=== PATIENT | female | born 1995 | race Caucasian/White ===

== ENCOUNTER 2022-09-02 23:37 | Inpatient (IN) ==
[2022-09-03] MEDS ORDERED: LIDOCAINE 1% LOCAL 20 ML VIAL INFIL PRN (00:17)
[2022-09-03] MEDS ORDERED: OXYTOCIN 30 UNITS/500 ML BAG IV PRN ×2 (00:17→13:10)
--- NOTE | 2022-09-03 00:22 | History & Physical Report ---
Date of Service September 03, 2022 Assessment & Plan (1) Supervision of normal intrauterine in primigravida: Plan: 26 yo at 40 6/7 wga presents in labor VSS Fetus cat 1 Labor - expectant management GBS neg epidural prn History of Present Illness Chief Complaint: ctx Primary Care Provider: NO PCP 26 yo at 40 6/7 wga presents w/ ctx increasing in frequency and intensity, worsened over last 3hrs compared to earlier. 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 SAB G2 current q21d cycles 01/2022 neg cyto denies hx stis Allergies Allergy/AdvReac Type Severity Reaction Status Date / Time clarithromycin Allergy Unknown unknown Verified 09/02/22 23:58 Home Medications Medication Instructions Recorded Confirmed Type prenat.vits,miguel a,nhj-ofho-ekbzg 1 tab PO DAILY 01/07/22 09/02/22 History Patient History Medical History No known health problems Surgical History S/P dilation and curettage S/P wisdom tooth extraction Family History Other Diabetes Heart disease Social History Smoking Status: Never smoker Hx Alcohol Use: No Hx Substance Use: No Preferred Language: Ukrainian Communication Ability: Effective 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 Beliefs That Will Affect Care: None marital status: marital status details: Sp (29) [phone] Current Living Situation: Spouse Current Living Situation Comment: house with current occupational status: employed 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 Other Information That Helps Us Care for You: No Feels Safe at Home: Yes Safety Concerns: Feels Safe At This Time Assistive Devices: Glasses Physical Exam Genitourinary: OB Exam Abdomen: + vertex Manual OB Exam: + cervical dilation (3-4), + cervical effacement 70% and + station -2 OB Exam Monitor Tracing: + external FHT monitor used, + external uterine monitor used (q5) and + category I (135/mod/+accel/-decel) Results & Data ([facility]) Vital Signs (Past 12 Hours) Vital Signs Temp Pulse Resp BP O2 Del Method 09/02/22 23:58 18 Room Air 09/02/22 23:56 97.9 F 106 H 18 122/76 Laboratory Results OB Labs: Blood Type A Positive 01/15/22 Antibody Screen NEGATIVE 01/15/22 Hemoglobin 11.0 g/dl (12.0-16.0) L 06/18/22 Hematocrit 32.7 % (34.1-44.9) L 06/18/22 Mean Corpuscular Volume 84.0 fL (80.0-100.0) 01/15/22 Platelet Count 279 K/uL (130-400) 01/15/22 Rubella IgG Antibody Immune (Immune) 01/15/22 Rapid Plasma Reagin Nonreactive (Nonreactive) 01/15/22 Hepatitis B Surface Antigen. NON-REACTIVE (NON-REACTIVE) 01/15/22 Hepatitis C Antibody (EIA) NON-REACTIVE (NON-REACTIVE) 01/15/22 HIV (1&2) Ag and Ab Confirmation NON-REACTIVE (NON-REACTIVE) 01/15/22 Glucose 1 Hour 50 gm Load 96 mg/dl (70-130) 06/18/22 OB Optional Labs: Chlamydia trachomatis RNA NOT DETECTED (NOT DETECTED) 01/15/22 Neisseria gonorrhoeae RNA NOT DETECTED (NOT DETECTED)B 01/15/22 GBS neg Diagnostic Findings ant plac Coding Level of Care Code None Diagnoses Supervision of normal intrauterine in primigravida Z34.00
[2022-09-03] MEDS: LACTATED RINGER'S 1,000 ML IV PRN ×2 (00:32→02:14)
[2022-09-03 00:58] LABS: Hematocrit (blood only) 31.6 % (37.0-47.0); Hemoglobin 10.4 g/dl (12.0-16.0); Mean Corpuscular Hemoglobin 25.7 pg (25.0-34.0); Mean Corpuscular Hgb Conc 32.9 g/dL (32.0-36.0); Mean Corpuscular Volume 78.2 fL (80.0-100.0); Platelet Count 246 K/uL (130-400); RDW Coefficient of Variation 13.7 % (11.5-14.5); Red Blood Count 4.04 M/uL (4.20-5.40); White Blood Count 11.44 K/ul (4.8-10.8)
[2022-09-03] MEDS ORDERED: SODIUM CHLORIDE 0.9% INJ 10 ML VIAL ONE (01:33)
[2022-09-03] MEDS ORDERED: fentaNYL citrate 100 MCG/2 ML VIAL ONE (01:33)
[2022-09-03] MEDS ORDERED: BUPIVACAINE 0.25% 30 ML VIAL ONE (01:33)
[2022-09-03] MEDS ORDERED: LIDOCAINE 2%/EPINEPHRINE 1:200,000 20 ML SDV ONE (01:33)
[2022-09-03] MEDS ORDERED: ePHEDrine sulfate 50 MG/ML AMP ONE (01:33)
[2022-09-03] MEDS ORDERED: fentaNYL 2MCG/ML ROPIVACAINE 1.25MG/ML 100 ML BAG EPI ONE (01:34)
[2022-09-03] MEDS ORDERED: NALBUPHINE HCL INJ 10 MG/ML AMP IV PRN (01:44)
[2022-09-03] MEDS ORDERED: NALOXONE HCL 1 MG in SODIUM CHLORIDE 0.9% 1000ML 1,000 ML IV PRN (01:44)
[2022-09-03] MEDS ORDERED: NALOXONE HCL 0.4 MG/1 ML VIAL/CARP IV PRN (01:44)
[2022-09-03] MEDS ORDERED: diphenhydrAMINE 50 MG/ML VIAL IV PRN (01:44)
[2022-09-03] MEDS ORDERED: ePHEDrine sulfate 50 MG/ML AMP IV PRN (01:44)
[2022-09-03] MEDS ORDERED: fentaNYL 2MCG/ML ROPIVACAINE 1.25MG/ML 100 ML BAG EPI PRN (01:44)
--- NOTE | 2022-09-03 01:44 | Anesthesiology Consultation ---
Date of Service September 03, 2022 Assessment & Plan (1) Encounter for pre-operative examination: Chart Review Chart Review: Patient NOT seen in Pre Admission Testing and Acceptable Risk for Labor Epidural Consults Requested none History Height/Weight Height: 5 ft 7 in Weight: 92.533 kg Allergies Allergy/AdvReac Type Severity Reaction Status Date / Time clarithromycin Allergy Unknown unknown Verified 09/02/22 23:58 Medications Home Medications Medication Instructions Recorded Confirmed Last Taken prenat.vits,miguel a,yhl-qoht-jjngi 1 tab PO DAILY 01/07/22 09/02/22 09/02/22 Active Medications Generic Name Dose Route Start Last Admin Trade Name Freq PRN Reason Stop Dose Admin Lactated Ringer's 1,000 mls @ 125 mls/hr 09/03/22 00:17 09/03/22 01:04 Lr IV 09/05/22 00:16 0 mls/hr .Q8H PRN Infusion L&D Protocol Protocol Past Medical History Medical History No known health problems Past Family History Family History Other Diabetes Heart disease Past Surgical History Surgical History S/P dilation and curettage S/P wisdom tooth extraction Social History Smoking Status: Never smoker Hx Alcohol Use: No Hx Substance Use: No substance use type: does not use Physical Exam Vital Signs Last Vital Signs Temp 97.9 F 09/02/22 23:56 Pulse 90 09/03/22 01:42 Resp 18 09/02/22 23:58 BP 122/76 09/02/22 23:56 Pulse Ox 98 09/03/22 01:42 O2 Del Method Room Air 09/02/22 23:58 Testing Laboratory Results 09/03/22 00:26
[2022-09-03] MEDS ORDERED: ONDANSETRON INJ 2 MG/ML 2 ML VIAL IV PRN (07:31)
--- NOTE | 2022-09-03 07:33 | Labor Progress Brief Note ---
Date of Service September 03, 2022 Subjective comfortable w/ epidural Assessment & Plan (1) Supervision of normal intrauterine in primigravida: Plan: 26 yo at 40 6/7 wga presents in labor VSS Fetus cat 1 Labor - good progress, continue monitoring GBS neg epidural Admission and Anticipated Discharge Date Admission Date: September 03, 2022 Physical Exam Genitourinary: Manual OB Exam: + cervical dilation 5 cm, + cervical effacement 90%, + station 0 and + amniotic fluid (arom clear) OB Exam Monitor Tracing: + external FHT monitor used, + external uterine monitor used (q6) and + category I (120/mod/+accel/-decel) Results & Data ([facility]) Vital Signs (Past 12 Hours) Vital Signs Temp Pulse Resp BP Pulse Ox O2 Del Method 09/02/22 23:58 18 Room Air 09/03/22 07:27 113 H 98 09/03/22 07:22 136 H 98 09/03/22 07:00 18 09/03/22 07:00 98.4 F 18 09/03/22 07:18 88 114/71 09/03/22 07:17 95 H 97 09/03/22 07:12 105 H 98 09/03/22 07:07 89 98 09/03/22 07:02 92 H 95 09/03/22 07:01 85 94 09/03/22 06:57 84 95 09/03/22 06:52 83 98 09/03/22 06:47 94 H 09/03/22 06:47 86 116/67 97 09/03/22 06:42 90 96 09/03/22 06:30 16 09/03/22 06:30 16 09/03/22 06:37 87 98 09/03/22 06:33 87 123/75 09/03/22 06:32 84 98 09/03/22 06:27 81 98 09/03/22 06:22 93 09/03/22 06:22 89 09/03/22 06:22 89 98 09/03/22 06:00 18 09/03/22 06:00 18 09/03/22 06:18 89 121/75 09/03/22 06:17 88 98 09/03/22 06:12 88 98 09/03/22 06:07 94 H 100 09/03/22 06:02 88 106/69 100 09/03/22 05:57 101 H 100 09/03/22 05:52 98 H 99 09/03/22 05:30 16 09/03/22 05:30 16 09/03/22 05:39 98.4 F 09/03/22 05:47 96 H 09/03/22 05:47 89 107/69 98 09/03/22 05:42 93 H 99 09/03/22 05:41 87 92 09/03/22 05:37 104 H 99 09/03/22 05:32 98 H 111/66 99 09/03/22 05:27 80 95 09/03/22 05:25 82 94 09/03/22 05:22 85 96 09/03/22 05:18 82 91/54 L 09/03/22 05:17 72 95 09/03/22 05:12 78 95 09/03/22 05:00 16 09/03/22 05:00 16 09/03/22 05:07 72 95 09/03/22 04:30 16 09/03/22 04:30 16 09/03/22 05:02 82 92/54 L 95 09/03/22 04:57 77 96 09/03/22 04:52 81 96 09/03/22 04:47 81 09/03/22 04:47 81 93/52 L 95 09/03/22 04:42 78 97 09/03/22 04:37 66 99 09/03/22 04:32 68 94/52 L 99 09/03/22 04:27 73 100 09/03/22 04:22 71 100 09/03/22 04:17 64 09/03/22 04:17 68 95/50 L 100 09/03/22 04:12 75 100 09/03/22 04:07 73 100 09/03/22 04:02 75 09/03/22 04:02 90 93/54 L 99 09/03/22 04:00 68 18 91/52 L 09/03/22 03:57 68 100 09/03/22 03:53 72 91/54 L 09/03/22 03:52 65 85/50 L 99 09/03/22 03:51 65 86/49 L 09/03/22 03:50 71 86/49 L 09/03/22 03:47 74 100 09/03/22 03:42 81 100 09/03/22 03:37 96 09/03/22 03:37 90 09/03/22 03:37 91 H 94 09/03/22 03:32 75 102/54 L 95 09/03/22 03:27 78 94 09/03/22 03:22 71 94 09/03/22 03:18 72 99/54 L 09/03/22 03:17 78 94 09/03/22 03:16 79 94 09/03/22 03:12 93 H 95 09/03/22 03:10 72 94 09/03/22 03:07 77 97 09/03/22 03:00 18 09/03/22 03:00 18 09/03/22 03:02 81 98/55 L 94 09/03/22 02:59 75 94 09/03/22 02:57 80 95 09/03/22 02:52 71 96 09/03/22 02:30 16 09/03/22 02:30 16 09/03/22 02:47 76 96/54 L 95 09/03/22 02:42 78 96 09/03/22 02:37 87 98 09/03/22 02:33 77 108/56 L 09/03/22 02:32 79 97 09/03/22 02:27 81 97 09/03/22 02:22 85 97 09/03/22 02:15 18 09/03/22 02:15 97.9 F 18 09/03/22 02:17 101 H 97 09/03/22 02:16 99 H 105/66 09/03/22 02:14 98 H 114/71 09/03/22 02:12 96 H 09/03/22 02:12 91 H 107/71 98 09/03/22 02:11 98 H 109/70 09/03/22 02:09 85 113/74 09/03/22 02:07 90 09/03/22 02:07 94 H 122/80 99 09/03/22 02:04 103 H 117/72 09/03/22 02:03 85 118/71 09/03/22 02:02 87 98 09/03/22 02:01 93 H 123/85 09/03/22 01:59 89 92 09/03/22 01:57 81 99 09/03/22 01:52 105 H 99 09/03/22 01:47 83 118/75 99 09/03/22 01:42 90 98 09/02/22 23:56 97.9 F 106 H 18 122/76 Coding Level of Care Code None Diagnoses Supervision of normal intrauterine in primigravida Z34.00
--- NOTE | 2022-09-03 12:41 | Anesthesia Procedure Note ---
Date of Service September 03, 2022 Anesthesia Post Epidural Note Vital Signs Vital Signs: Temp Pulse Resp BP Pulse Ox O2 Del Method 36.9 C 77 19 116/64 99 Room Air 09/03/22 11:33 09/03/22 12:31 09/03/22 11:33 09/03/22 12:31 09/03/22 10:52 09/02/22 23:58 Notes Mental Status: alert / awake / arousable Nausea / Vomiting: adequately controlled Pain: adequately controlled Airway Patency, RR, SpO2: stable & adequate BP & HR: stable & adequate Hydration State: stable & adequate Neuraxial Anesthesia: was administered and sensory block is resolving Anesthetic Complications: no major complications apparent and Pt Satisfied with anesthetic care Epidural: Removed without complications and With tip intact
[2022-09-03] MEDS ORDERED: ACETAMINOPHEN 325 MG TAB PO PRN (13:10)
[2022-09-03] MEDS ORDERED: bisacodyL 10 MG SUPP PR PRN (13:10)
[2022-09-03] MEDS ORDERED: HYDROCORTISONE ACETATE 25 MG SUPP PR PRN (13:10)
[2022-09-03] MEDS ORDERED: BENZOCAINE 20% AER SPR 82.5 GM CAN EXT PRN (13:10)
[2022-09-03] MEDS ORDERED: DIPHTHERIA/TETANUS/PERTUSSIS 0.5mL SYR/VIAL (Age 7+yrs) IM ONE (13:10)
[2022-09-03] MEDS: IBUPROFEN 600 MG TAB PO PRN ×2 (14:44→21:00)
--- NOTE | 2022-09-03 17:17 | Delivery Summary ---
Supervising Physician Co-Signing Physician Notes Patient is a G1, P0 female EDC of 08/28/2022 who presented in active labor. Membranes were ruptured for clear fluid and she received effective epidural analgesia. She progressed to complete with the urge to push. She pushed effectively over intact perineum for delivery of a viable female . There was a mild shoulder dystocia present which was resolved with flexion of the hips. The rest of the infant was delivered easily and she was placed on the mother's abdomen for further attention and drying. After 1 minute the cord was clamped and cut. Infant was vigorous and crying and moving all 4 limbs upon delivery. After cord blood was obtained the placenta was expressed intact with a three-vessel cord. bleeding was controlled with dilute Pitocin and fundal massage. First-degree labial and bilateral small sulcal tears were repaired with 3-0 chromic in the standard fashion. Estimated blood loss was 300 cc. Mother and infant were doing well after delivery. Vaginal Delivery Summary Date of Service September 03, 2022 Vaginal Delivery Summary and 1st Degree [place] [facility] [place] Charge Delivery Type Details: and 1st Degree LAC
[2022-09-03] MEDS: DOCUSATE SODIUM 100 MG CAP PO SCH (21:00)
[2022-09-04] MEDS: IBUPROFEN 600 MG TAB PO PRN ×3 (04:08→15:11)
--- NOTE | 2022-09-04 06:12 | Obstetrical Progress Note ---
Date of Service <Maribell Zuñiga MD - Last Filed: 09/04/22 07:56> September 04, 2022 Assessment & Plan <Maribell Zuñiga MD - Last Filed: 09/04/22 07:56> (1) examination following vaginal delivery: 26 y/o female who presented in active labor now PPD1 after . Rh pos, RI, GBS neg. Satisfactory post progress. Tolerating PO. Encourage ambulation. <Tabatha Echeverria MD, FACOG - Last Filed: 09/04/22 08:05> (1) examination following vaginal delivery: Subjective <Maribell Zuñiga MD - Last Filed: 09/04/22 07:56> Ambulation: ambulating normally Voiding: no voiding problems Passing Gas:: Yes Diet Tolerance:: regular diet Lochia:: Small Feeding Type:: breast feeding Physical Exam <Maribell Zuñiga MD - Last Filed: 09/04/22 07:56> Gen: well appearing female in NAD HEENT: AT NC Resp: CTAB, No increased work of breathing CV: RRR, no m/r/g, no calf tenderness : uterus firm, non-tender at the level of the umbilicus Psych: appropriate mood and affect Neuro: alert and oriented Results & Data ([place]) <Maribell Zuñiga MD - Last Filed: 09/04/22 07:56> Vital Signs (Past 12 Hours) Vital Signs Temp Pulse Resp BP Pulse Ox O2 Del Method 09/04/22 04:05 82 16 104/69 97 Room Air 09/03/22 23:30 36.9 C 84 16 100/67 97 Room Air 09/03/22 20:00 36.5 C 90 18 118/74 97 Room Air Laboratory Results 09/03/22 00:26 <Tabatha Echeverria MD, FACOG - Last Filed: 09/04/22 08:05> Co-Signing Physician Notes Resident Physician Supervision Note: I interviewed and examined the patient. Discussed with Dr. Zuñiga and agree with findings and plan as documented in the note. Any exceptions or clarifications a re listed here: [None] Documented By: Tabatha Echeverria MD, FACOG Resident Activity Tracking <Maribell Zuñiga MD - Last Filed: 09/04/22 07:56> Resident Involvement: Resident Care Provided Care Provided: OB Delivery
[2022-09-04 06:46] LABS: Hematocrit (blood only) 26.1 % (37.0-47.0); Hemoglobin 8.3 g/dl (12.0-16.0); Mean Corpuscular Hemoglobin 25.6 pg (25.0-34.0); Mean Corpuscular Hgb Conc 31.8 g/dL (32.0-36.0); Mean Corpuscular Volume 80.6 fL (80.0-100.0); Mean Platelet Volume 10.7 fL (9.4-12.4); Platelet Count 188 K/uL (130-400); RDW Coefficient of Variation 13.6 % (11.5-14.5); RDW Standard Deviation 39.9 fL (36.4-46.3); Red Blood Count 3.24 M/uL (4.20-5.40); White Blood Count 9.64 K/ul (4.8-10.8)
[2022-09-04] MEDS ORDERED: PRENATAL VITAMIN 1 TAB PO SCH (08:00)
[2022-09-04] MEDS: DOCUSATE SODIUM 100 MG CAP PO SCH (08:06)
[2022-09-04] MEDS ORDERED: bisacodyL 5 MG TABEC PO SCH (20:00)
== END 2022-09-04 18:25 | disposition home or self-care (01) | DRG 807 ==
LOC: OPB 23:37 → 4S1 23:42 → 4E2 09-03 14:54